=== PATIENT | male | born 1985 | race Two or more races ===

== ENCOUNTER 2020-08-22 13:59 | Emergency (ER) | payer MEDICAID ==
--- NOTE | 2020-08-22 14:37 | ER Document Report ---
ED Medical Screen (RME) - General Chief Complaint: Edema Stated Complaint: SHORTNESS OF BREATH Time Seen by Provider: 08/22/20 14:29 Notes: Patient is a 34-year-old male who presents emergency department with a chief complaint of shortness of breath. Patient states that he does receive hemodialysis on Tuesday, Tuesday and Tuesday. Patient states his last dialysis was on Tuesday, 2 days ago. Patient reports yesterday he flew from [place] to visit family. He states that that he is having insurance issues and setting up dialysis with [facility] and was told to come to the emergency department to receive dialysis. Patient states he does retain a lot of fluid and does have some shortness of breath and swelling in his lower extremities. - Related Data Allergies/Adverse Reactions: No Known Allergies Allergy (Verified 08/22/20 14:29) Past Medical History - Social History Frequency of alcohol use: None Physical Exam - Vital signs Vitals: Temp Pulse Resp BP Pulse Ox 98.2 F 104 H 20 174/93 H 93 08/22/20 14:19 08/22/20 14:19 08/22/20 14:19 08/22/20 14:19 08/22/20 14:19 - Respiratory Respiratory status: No respiratory distress Chest status: Nontender Breath sounds: Normal Chest palpation: Normal Course - Re-evaluation Re-evalutation: 08/22/20 14:37 Patient's not hypotensive, hypoxic or febrile. Slightly tachycardic. No acute distress in triage. Lungs are clear to auscultation. Will obtain basic labs as well as a chest x-ray. I have greeted and performed a rapid initial assessment of this patient. A comprehensive ED assessment and evaluation of the patient, analysis of test results and completion of the medical decision making process will be conducted by additional ED providers. - Vital Signs Vital signs: Temp Pulse Resp BP Pulse Ox 98.2 F 104 H 20 174/93 H 93 08/22/20 14:19 08/22/20 14:19 08/22/20 14:19 08/22/20 14:19 08/22/20 14:19
[2020-08-22 15:36] LABS: ABSOLUTE EOSINOPHILS # (AUTO) 0.1 10^3/uL (0.0-0.6); ABSOLUTE LYMPHOCYTES (AUTO) 0.8 10^3/uL (0.5-4.7); ABSOLUTE MONOCYTES (AUTO) 0.3 10^3/uL (0.1-1.4); ABSOLUTE NEUT (AUTO) 3.6 10^3/uL (1.7-8.2); BASOPHILS % (AUTO) 0.6 % (0-2); EOSINOPHILS % (AUTO) 1.8 % (0-6); HEMATOCRIT 21.6 % (37.9-51.0); LYMPHOCYTES % (AUTO) 16.7 % (13-45); MEAN CORPUSCULAR HEMOGLOBIN 32.1 pg (27.0-33.4); MEAN CORPUSCULAR HGB CONC 34.3 g/dL (32.0-36.0); MEAN CORPUSCULAR VOLUME 94 fl (80-97); MONOCYTES % (AUTO) 6.6 % (3-13); PLATELET COUNT 135 10^3/uL (150-450); RED BLOOD COUNT 2.32 10^6/uL (4.35-5.55); RED CELL DISTRIBUTION WIDTH 14.7 % (11.5-14.0); SEGMENTED NEUTROPHILS % (AUTO) 74.3 % (42-78); TOTAL CELLS COUNTED % (AUTO) 100 %; WHITE BLOOD COUNT 4.9 10^3/uL (4.0-10.5)
--- NOTE | 2020-08-22 15:39 | RADIOLOGY REPORT (SQ) ---
EXAM DESCRIPTION: CHEST 2 VIEWS IMAGES COMPLETED DATE/TIME: 08/22/2020 3:30 pm REASON FOR STUDY: Shortness of breath COMPARISON: None. EXAM PARAMETERS: NUMBER OF VIEWS: two views TECHNIQUE: Digital Frontal and Lateral radiographic views of the chest acquired. RADIATION DOSE: NA LIMITATIONS: none FINDINGS: LUNGS AND PLEURA: Pulmonary vascular congestion with alveolar and interstitial pulmonary e agustin. Trace fluid in the major and minor fissures. No pneumothorax. MEDIASTINUM AND HILAR STRUCTURES: No masses or contour abnormalities. HEART AND VASCULAR STRUCTURES: Mild cardiomegaly BONES: No acute findings. HARDWARE: None in the chest. OTHER: Caps IMPRESSION: Pulmonary vascular congestion with alveolar and interstitial pulmonary edema. Trace ple ural effusions bilaterally TECHNICAL DOCUMENTATION: JOB ID: [id number] 2010 [employer]- All Rights Reserved Reading location - IP/workstation name: [id number]
[2020-08-22 15:49] LABS: HEMOGLOBIN 7.4 g/dL (13.5-17.0)
[2020-08-22 15:53] LABS: ALBUMIN 3.2 g/dL (3.5-5.0); ALKALINE PHOSPHATASE 65 U/L (38-126); ANION GAP 12 (5-19); ASPARTATE AMINO TRANSFERASE 17 U/L (17-59); BILIRUBIN,DIRECT 0.3 mg/dL (0.0-0.4); BILIRUBIN,TOTAL 0.6 mg/dL (0.2-1.3); BLOOD UREA NITROGEN 90 mg/dL (7-20); CALCIUM 8.2 mg/dL (8.4-10.2); CARBON DIOXIDE 25 mmol/L (22-30); CHLORIDE 101 mmol/L (98-107); GLUCOSE 109 mg/dL (75-110); POTASSIUM 5.2 mmol/L (3.6-5.0); TOTAL PROTEIN 5.1 g/dL (6.3-8.2)
--- NOTE | 2020-08-22 21:19 | EKG REPORT ---
SEVERITY:- BORDERLINE ECG - SINUS TACHYCARDIA PROBABLE LEFT ATRIAL ABNORMALITY BORDERLINE PROLONGED QT INTERVAL : Confirmed by: No Cuello MD 22-Aug-2020 21:18:46
--- NOTE | 2020-08-22 22:22 | ER Document Report ---
ED General - General Chief Complaint: Edema Stated Complaint: SHORTNESS OF BREATH Time Seen by Provider: 08/22/20 14:29 - HPI Context: This is a 34-year-old male with a history of focal glomerular nephritis and end- stage renal disease, on dialysis Tuesday and Tuesday, presenting with a chief complaint of shortness of breath. Patient states that he is visiting from [place] and had to come from [place] here to [facility] suddenly because of the of his aunt. Patient had dialysis on Tuesday in [place] and tried to make arrangements to have outpatient dialysis done today at [facility] but was unable to do this due to issues with insurance. Patient states that he had a rapid COVID test done in [place] just prior to flying here for the ; patient states the test was negative. Patient states that his shortness of breath started yesterday afternoon and was worse overnight, especially with supine position. Patient is also complaining of increased swelling in his ankles bilaterally. Patient denies any recent fever, known exposure to COVID positive persons or persons under investigation for COVID, loss of sense of taste or loss of sense of smell. Patient states supine exertion and exertion exacerbates his shortness of breath. Patient states remaining still and meditating slightly helps his symptoms. Patient states that when he was initially being evaluated for his problems with shortness of breath this year he had multiple sputum test done to check for tuberculosis and had 3 months of anti-tuberculosis therapy done until his sputum cultures resulted n egative. Patient states that they eventually found out the cause of his persistent shortness of breath to be related to his renal disease and not tuberculosis. Patient had the tuberculosis testing, medication treatment and cultures done earlier this year. Associated symptoms: Other - See HPI Exacerbated by: Other - See HPI Relieved by: Other - See HPI - Related Data Allergies/Adverse Reactions: No Known Allergies Allergy (Verified 08/22/20 14:29) Past Medical History - General Information source: Patient - Social History Smoking Status: Former Smoker Frequency of alcohol use: None Family History: Reviewed & Not Pertinent - Past Medical History Cardiac Medical History: Reports: Hx Hypertension Pulmonary Medical History: Reports: Other Renal/ Medical History: Reports: Hx End Stage Renal Disease, Other - Focal glomerulonephritis Review of Systems - Review of Systems Constitutional: No symptoms reported EENT: No symptoms reported Cardiovascular: Edema Respiratory: Short of breath Gastrointestinal: No symptoms reported Genitourinary: No symptoms reported Male Genitourinary: No symptoms reported Musculoskeletal: No symptoms reported Skin: No symptoms reported Hematologic/Lymphatic: No symptoms reported Neurological/Psychological: No symptoms reported -: Yes All other systems reviewed and negative Physical Exam - Vital signs Vitals: Temp Pulse Resp BP Pulse Ox 98.2 F 104 H 20 174/93 H 93 08/22/20 14:19 08/22/20 14:19 08/22/20 14:19 08/22/20 14:19 08/22/20 14:19 - Notes Notes: CONSTITUTIONAL [Vital signs reviewed, Patient appears tachypneic , Alert and oriented X 3, Normal stature.] HEAD [Atraumatic, Normocephalic.] EYES [Eyes are normal to inspection, No discharge from eyes, Extraocular muscles intact, Sclera are normal, Conjunctiva are normal.] NECK [Normal ROM, No jugular venous distention, No meningeal signs, no carotid br uit.] RESPIRATORY CHEST [Chest is nontender, breath sounds diminished bilaterally, positive tachypnea.] CARDIOVASCULAR [Tachycardia, No murmurs, Normal S1 S2, No rub, No gallop.] ABDOMEN [Abdomen is nontender, No pulsatile masses, No other masses, Bowel sounds normal, No distension, No peritoneal signs, No hernias.] BACK [There is no CVA Tenderness, There is no tenderness to palpation, Normal inspection.] UPPER EXTREMITY [Inspection normal, No cyanosis, No clubbing, No edema, 2+ radial pulses.] LOWER EXTREMITY Patient has 2+ pitting edema lower extremities bilaterally NEURO [No focal motor deficits, No focal sensory deficits, Speech normal.] SKIN [Skin is warm, Skin is dry, Skin is normal color.] LYMPHATIC [No adenopathy in neck.] PSYCHIATRIC [Normal affect. ] Course - Re-evaluation Re-evalutation: 08/22/20 23:36 Results of ED MSE discussed with patient. Patient notified that this facility does not have inpatient dialysis services available at this time. Patient informed that he will be transferred to [facility] for dialysis. Patient agreed with transfer. 08/23/20 02:25 [facility] transfer has arrived to take patient to [facility]. Patient states he is feeling better at this time and has had some successful diuresis as a result of the IV Lasix. Patient appears stable for transport and transfer. - Vital Signs Vital signs: Temp Pulse Resp BP Pulse Ox 98.1 F 101 H 7 L 171/90 H 98 08/22/20 18:51 08/22/20 18:51 08/23/20 02:05 08/23/20 02:05 08/23/20 02:05 - Laboratory Result Diagrams: 08/22/20 15:22 08/22/20 15:22 Laboratory results interpreted by me: 08/22/20 08/22/20 08/22/20 15:22 15:22 15:22 RBC 2.32 L Hgb 7.4 L Hct 21.6 L RDW 14.7 H Plt Count 135 L Potassium 5.2 H BUN 90 H Creatinine 16.64 H Est GFR ( Amer) 4 L Est GFR (MDRD) Non-Af 3 L Calcium 8.2 L NT-Pro-B Natriuret Pep 71942 H Total Protein 5.1 L Albumin 3.2 L - Diagnostic Test Radiology reviewed: Reports reviewed - EKG Interpretation by Me Additional EKG results interpreted by me: 08/22/20 23:37 EKG obtained on 08/22/2020 at 1517 hrs. was interpreted by this MD. Findings si nus tachycardia, rate 106, normal axis, NV interval within normal limits, P waves preceding QRS complexes, QRS complexes appear narrow, QTC is 473, there are no obvious patterns of ST segment elevation or depression visualized there concerning for acute myocardial ischemia or infarction. No prior EKGs immediately available for comparison. Impression: Sinus tachycardia with nonspecific ST segments. - Consults [facility] Time consulted: 22:36 - SALES CONTRACT ADMINISTRATOR, KERRI, STATED [facility] COULD NOT ACCEPT PT FOR TRANSFER WITHOUT RAPID COVID TEST Reason for consultation: 08/22/20 22:36 TRANSFER TO FACILITY WITH PERMACULTURE CONTRACTOR AVAILABILITY AND DIALYSIS CAPABILITY Dr. Martin, flue tile press operator, [facility] Time consulted: 23:05 - Dr. Cordova recommended transfusing the patient a unit of blood and giving 200 mg of Lasix IV and speaking to the hospitalist to arrange for transfer. Reason for consultation: 08/22/20 23:10 Dialysis patient with pulmonary edema in need of dialysis services. DR. MENESES, HOSPITALIST, [facility] Time consulted: 23:30 - Dr. Meneses accepted the patient to his facility for transfer. He stated he would hold off on giving the patient blood at this point and can give him blood there if needed during dialysis. He stated that the patient could go ahead and be given Lasix. Reason for consultation: 08/22/20 23:32 Dialysis patient with pulmonary edema in need of dialysis Discharge - Discharge Clinical Impression: End stage renal disease on dialysis Pulmonary edema Qualifiers: Chronicity: acute Qualified Code(s): J81.0 - Acute pulmonary edema Condition: Stable Disposition: [facility]
[2020-08-22] MEDS ORDERED: FUROSEMIDE INJ/PF 20 MG/2 ML SDV IV ONE (23:40)
[2020-08-23 02:19] VITALS: BP 171/90
== END 2020-08-23 02:31 | disposition short-term general hospital (02) ==
LOC: ER 13:59
DX: J81.0 Acute pulmonary edema (principal); I12.0 Hypertensive chronic kidney disease with stage 5 chronic kidney disease or end stage renal disease; N18.6 End stage renal disease; R06.02 Shortness of breath; R00.0 Tachycardia, unspecified; Z99.2 Dependence on renal dialysis
CPT/HCPCS: 93005; 99285; 96374; 36415; 85025; 80053; 83880; 71046; 93010; J1940